=== PATIENT | female | born 1980 | race Caucasian/White ===

== ENCOUNTER 2018-03-22 06:46 | Day surgery (SDC) | payer OTHER ==
[~2018-03-22] VITALS: Ht 162.6 cm; Wt 95.7 kg
[~2018-03-22 06:46] MED LIST: NARATRIPTAN HC2.5 MG PO; ZOFRAN ODT8 MG PO
--- NOTE | 2018-03-22 08:55 | NUR ---
03/22/18 0855 Coral Correia 0810 PT ARRIVED TO PACU WITH 8L VIA MASK IN PLACE, RESP EVEN AND UNLABORED. PT REACTIV ETO TACTILE STIMULI.
--- NOTE | 2018-03-22 10:42 | NUR ---
1035 DR VARNER IN TO TALK TO PT SAYS SHE WILL HAVE SORE THROAT FOR DAY OR 2. NO PRESCRIPTION NEEDED. ENC ICE CHIPS AND SOFT FOODS TODAY.
--- NOTE | 2018-03-22 10:44 | NUR ---
1040 AMB TO [facility]. AMB WELL. READY TO GO HOME.
--- NOTE | 2018-03-22 11:45 | NUR ---
PT IS ALERT, ORIENTED AND SUPPORTED BY FAMILY. SHE SEEMED RELAXED, INFORMED AND HAD FEW QUESTIONS. PT REQUESTED PRAYER, WILL FOLLOW NEEDED
--- NOTE | 2018-03-29 14:26 | OR ---
[facility] [address], [place] [address] Signed DATE OF OPERATION: 03/22/2018 SURGEON: South Varner MD PREOPERATIVE DIAGNOSIS: Dysphagia. POSTOPERATIVE DIAGNOSIS: Dysphagia. PROCEDURE: Direct rigid esophagoscopy with dilatation. ANESTHESIA: General orotracheal; DIRECTOR OF STRATEGIC MARKETING, Sharon. PREOPERATIVE HISTORY: Chantell is a 37-year-old lady with difficulty swallowing, long history of food, saliva sticks in her throat pointing to the midline sternal notch area. Exam in the office has been negative. Barium swallow was performed showing some "decreased peristalsis." No benefit from speech therapy. She was taken to the operating room for the above-mentioned procedures. OPERATIVE PROCEDURE AND FINDINGS: After informed consent, the patient was taken to the operating room and placed in supine position where general orotracheal anesthesia was induced. The patient and procedure were verified. The patient was repositioned. Long rigid esophagoscope was passed with some difficulty down to 30 cm. No abnormalities were seen. No biopsies taken. Very tight exam due to decreased mobility of the tongue and mandible, reduced jaw opening. The 58-[place] dilator was then passed down to the distal esophagus without any difficulty. No trouble passing. The patient was then awakened, extubated, and transported to the recovery room in good condition. No complications. BLOOD LOSS: None. SPECIMEN: No specimen. DRAINS: Electronically Signed By: SOUTH VARNER MD 03/29/18 1426 PATIENT NAME: CHANTELL RANDLE MORA OPERATIVE REPORT DATE OF : 80 REPORT #: [id number] PHYSICIAN: SOUTH VARNER MD PCP: Yuli Pedroza REPORT IS CONFIDENTIAL AND NOT TO BE RELEASED WITHOUT AUTHORIZATION [address] [place], [place] [address] Signed No drains. South Varner MD /MODL /[id number] Copies: ~ Electronically Signed By: SOUTH VARNER MD 03/29/18 1426 PATIENT NAME: CHANTELL RANDLE OPERATIVE REPORT DATE OF : 80 REPORT #: [id number] PHYSICIAN: SOUTH VARNER MD PCP: Yuli Pedroza REPORT IS CONFIDENTIAL AND NOT TO BE RELEASED WITHOUT AUTHORIZATION
== END 2018-03-22 10:55 | disposition home or self-care (01) ==
LOC: DS 06:46
PROVIDERS: Otolaryngology
PROC: 0D738ZZ Dilation of Lower Esophagus, Via Natural or Artificial Opening Endoscopic (ICD-10-PCS; principal; 2018-03-22 08:00)
DX: R13.10 Dysphagia, unspecified (principal); G43.909 Migraine, unspecified, not intractable, without status migrainosus; F41.9 Anxiety disorder, unspecified; Z88.1 Allergy status to other antibiotic agents
CPT/HCPCS: J0330; J1100; J1885; J2250; J2704; J3010; J7120